=== PATIENT | female | born 1940 | race Caucasian/White ===

== ENCOUNTER 2022-01-13 14:46 | Outpatient (REF) | payer OTHER, SELFPAY ==
--- NOTE | ~2022-01-13 | XR_ITS ---
EXAMINATION: XR HAND WRIST, RIGHT XR HAND WRIST, LEFT CLINICAL INFORMATION: M10.9 - Gout, unspecified COMPARISON: Bilateral feet 01/13/2022. TECHNIQUE: Each 8 and wrist are imaged in 3 large [id number] images. A navicular view of each wrist is also included. There are a total of 8 views, 4 on each side. FINDINGS: Right: There is generalized osteopenia. The ulnar variance is neutral. There is soft tissue swelling adjacent to the ulnar styloid. No carpal joint narrowing or erosive change or chondrocalcinosis. The MCP joints and interphalangeal joints, or unremarkable. The digits demonstrate large punched-out lytic lesion involving the head fifth finger middle phalanx. There is a small periarticular erosion lateral side neck third finger middle phalanx and periarticular soft tissue mineralization medial side index and third finger DIP joints. Left: There is generalized osteopenia. The ulnar variance is neutral. There is mild soft tissue swelling adjacent to the ulnar styloid. No carpal joint narrowing or erosive change or chondrocalcinosis. The MCP joints and interphalangeal joints are unremarkable. There is mild narrowing DIP and PIP joints. No periarticular defects or significant mineralized tophi demonstrated. There is questionable small healed erosion lateral base third finger distal phalanx. XR/XR hand wrist LT IMPRESSION: Right: -Generalized osteopenia. Soft tissue swelling adjacent to ulnar styloid. -Large punched-out lytic erosion head fifth finger middle phalanx. Small erosion 3rd MP. -Periarticular mineralization 2nd and 3rd fingers. Left: -Generalized osteopenia. Soft tissue swelling adjacent to ulnar styloid. -Mild narrowing DIP, PIP joints. -Small periarticular erosion third finger middle phalanx and medial side index and third finger DIP joints.
--- NOTE | ~2022-01-13 | XR_ITS ---
EXAMINATION: XR FOOT, RIGHT XR FOOT, LEFT CLINICAL INFORMATION: M10.9 - Gout, unspecified COMPARISON: None TECHNIQUE: Each foot is imaged in 3 views. There are a total of 6 views. FINDINGS: Right: There is generalized osteopenia. Hindfoot shows bulky posterior and plantar calcaneal spurs with preserved retrocalcaneal recess. There is dorsal spurring from the midfoot. The forefoot shows hallux valgus of around 25 degrees and a medial bunion first MTP. There is a para-articular erosion dorsomedial first metatarsal head. No mineralized tophus. There are erosions medial and lateral base first proximal phalanx. Possibility of an occult pathologic fracture at the medial base proximal phalanx cannot be excluded. The second digit shows destructive process with extensive lysis middle phalanx and base and mid portion distal phalanx. There is no gas seen tracking in the soft tissues. No mineralized tophus. There are para-articular erosions third and fourth toe near the PIP joints. No erosive changes. Left: There is generalized osteopenia. Hindfoot shows bulky posterior and plantar calcaneal spurs. Question para-articular erosion dorsum distal talus. Talonavicular joint appears normal. Remainder midfoot shows no erosive change or calcified soft tissue tophus. There are erosive changes involving the base first distal phalanx and neck and proximal phalanx. Possibility of pathologic fracture neck proximal phalanx cannot be excluded. No mineralized tophus in this area. There are minor soft tissue periarticular mineralization around the 3rd PIP joint. XR/XR foot LT min 3V IMPRESSION: Right: -Large lytic involvement 2nd toe middle and distal phalanges. No gas tracking in soft tissue or tophus. -1st MTP hallux valgus with para-articular erosions 1st MT head and base proximal phalanx. Cannot exclude pathologic fracture medial base proximal phalanx. -Calcaneal spurs. Generalized osteopenia. Left: -Probable erosion dorsum distal talus. -Erosive changes base first distal phalanx and neck proximal phalanx. Possibility of pathologic fracture neck proximal phalanx cannot be excluded. -Calcaneal spurs. Generalized osteopenia.
--- NOTE | ~2022-01-13 | XR_ITS ---
EXAMINATION: XR HAND WRIST, RIGHT XR HAND WRIST, LEFT CLINICAL INFORMATION: M10.9 - Gout, unspecified COMPARISON: Bilateral feet 01/13/2022. TECHNIQUE: Each 8 and wrist are imaged in 3 large [id number] images. A navicular view of each wrist is also included. There are a total of 8 views, 4 on each side. FINDINGS: Right: There is generalized osteopenia. The ulnar variance is neutral. There is soft tissue swelling adjacent to the ulnar styloid. No carpal joint narrowing or erosive change or chondrocalcinosis. The MCP joints and interphalangeal joints, or unremarkable. The digits demonstrate large punched-out lytic lesion involving the head fifth finger middle phalanx. There is a small periarticular erosion lateral side neck third finger middle phalanx and periarticular soft tissue mineralization medial side index and third finger DIP joints. Left: There is generalized osteopenia. The ulnar variance is neutral. There is mild soft tissue swelling adjacent to the ulnar styloid. No carpal joint narrowing or erosive change or chondrocalcinosis. The MCP joints and interphalangeal joints are unremarkable. There is mild narrowing DIP and PIP joints. No periarticular defects or significant mineralized tophi demonstrated. There is questionable small healed erosion lateral base third finger distal phalanx. XR/XR hand wrist RT IMPRESSION: Right: -Generalized osteopenia. Soft tissue swelling adjacent to ulnar styloid. -Large punched-out lytic erosion head fifth finger middle phalanx. Small erosion 3rd MP. -Periarticular mineralization 2nd and 3rd fingers. Left: -Generalized osteopenia. Soft tissue swelling adjacent to ulnar styloid. -Mild narrowing DIP, PIP joints. -Small periarticular erosion third finger middle phalanx and medial side index and third finger DIP joints.
[2022-01-13 15:15] LABS: MANUAL DIFF FLAG NO
[2022-01-13 15:35] LABS: Basophils Percent Auto 0.5 % (0-2); Eosinophils Absolute Auto 0.1 X10*3/uL (0.0-0.4); Eosinophils Percent Auto 1.2 % (0-4); Hematocrit 27.1 % (37.0-47.0); Hemoglobin 7.7 g/dl (12.0-16.0); Imm Gran Abs Auto 0.03 X10*3/uL (0.00-0.03); Imm Gran Pct Auto 0.5 % (0.0-0.4); Lymphocytes Absolute Auto 1.4 X10*3/uL (1.2-4.9); Lymphocytes Percent Auto 24.6 % (20-40); Mean Corpuscular HGB Conc 28.4 g/dl (31.0-35.0); Mean Corpuscular Hemoglobin 21.8 pg (27.0-33.0); Mean Corpuscular Volume 76.8 fL (80.0-98.0); Mean Platelet Volume 9.6 fL (9.4-12.3); Monocytes Absolute Auto 0.5 X10*3/uL (0.1-1.2); Monocytes Percent Auto 8.5 % (2-11); NRBC Pct Auto 0.4 /100WBC (0.0-0.2); Neutrophils Absolute Auto 3.7 x10*3/uL (2.0-8.3); Neutrophils Percent Auto 64.7 % (45-73); Platelet Count 268 X10*3/uL (160-400); Red Blood Count 3.53 X10*6/uL (4.20-5.50); Red Cell Distribution Width 19.1 % (11.0-16.0); White Blood Count 5.7 X10*3/uL (4.8-10.8)
[2022-01-13 16:01] LABS: Alanine Aminotransferase 8 U/L (0-31); Albumin Level 4.2 g/dL (3.5-5.0); Alkaline Phosphatase 65 U/L (39-117); Anion Gap 19 (12-20); Aspartate Amino Transferase 12 U/L (5-31); Bilirubin Total 0.5 mg/dL (0.0-1.0); Blood Urea Nitrogen 26 mg/dL (9-16); Calcium 9.2 mg/dL (8.4-10.2); Carbon Dioxide 23 mmol/L (22-29); Chloride 105 mmol/L (96-108); Estimated Glomerular Filt Rate > 60; Glucose Random 152 mg/dL (60-115); Potassium 4.9 mmol/L (3.3-5.1); Sodium 142 mmol/L (135-145); Total Protein 6.9 g/dL (6.5-8.0); Uric Acid 9.4 mg/dL (2.4-5.7)
[2022-01-13 16:17] LABS: Appearance Urine Cloudy; Color Urine Yellow; Glucose Urine UA Negative (Negative); Leukocyte Esterase Urine Large (3+) (Negative); Nitrite Urine Negative (Negative); Specific Gravity - Urine 1.015 (1.005-1.025); UMIC TRIGGER UA YES; Urine Blood Trace (Negative); Urine Ketones Negative (Negative); Urine Protein 30 (1+) mg/dL (Neg-Trace)
[2022-01-13 16:19] LABS: Bacteria Urine 4+ (None Seen); Hyaline Casts Urine 0-2 /LPF (0-2); Squamous Epithelial Cell Urine 0-2 /HPF (0-2); WBC Urine >50 /HPF (0-5)
[2022-01-13 16:23] LABS: Thyroid Stimulating Hormone 0.96 uIU/mL (0.32-4.0)
[2022-01-13 16:26] LABS: Creatinine Urine 73.03 mg/dL; Protein/Creatinine Ratio, Ur 0.41 (<0.2); Total Protein Urine Random 30 mg/dL (<12)
[2022-01-13 16:26] LABS: Erythrocyte Sedimentation Rate 28 MM/HR (0-20)
[2022-01-16 14:51] LABS: Anti-Centromere B Antibodies <1.0 NEG AI (<1.0 NEG)
[2022-01-16 16:36] LABS: Complement C3 131 mg/dL
[2022-01-18 12:26] LABS: ANA Titer 2 1:40 titer; Anti Nuclear Antibody Screen POSITIVE (NEGATIVE); Anti Nuclear Antibody Titer 1:40 titer
[2022-01-18 15:48] LABS: Anti DNA DS Antibody <1 IU/mL; Antibody to SS-A Antigen <1.0 NEG AI (<1.0 NEG); Antibody to SS-B Antigen <1.0 NEG AI (<1.0 NEG); SM/Ribonucleoprotein Ab <1.0 NEG AI (<1.0 NEG); Scleroderma 70 Antibody <1.0 NEG AI (<1.0 NEG); Smith Protein <1.0 NEG AI (<1.0 NEG)
[2022-01-19 12:01] LABS: HLA B27 Negative (Negative)
== END 2022-01-13 14:47 | disposition home or self-care (01) ==
LOC: HO.XRAY 14:46
PROVIDERS: Visit Provider Student in an Organized Health Care Education/Training Program
DX: I73.00 Raynaud's syndrome without gangrene (principal); M10.9 Gout, unspecified; M79.89 Other specified soft tissue disorders
CPT/HCPCS: 36415; 73110; 73130; 73630; 80053; 81001; 84156; 84443; 84550; 85025; 85652; 86038; 86039; 86160; 86225; 86235; 86812

== ENCOUNTER 2022-03-11 08:19 | Outpatient (REF) | payer OTHER, SELFPAY ==
[2022-03-11 08:31] LABS: MANUAL DIFF FLAG NO
[2022-03-11 08:59] LABS: Basophils Percent Auto 0.7 % (0-2); Eosinophils Absolute Auto 0.1 X10*3/uL (0.0-0.4); Eosinophils Percent Auto 1.3 % (0-4); Hematocrit 30.8 % (37.0-47.0); Hemoglobin 8.9 g/dl (12.0-16.0); Imm Gran Abs Auto 0.01 X10*3/uL (0.00-0.03); Imm Gran Pct Auto 0.2 % (0.0-0.4); Lymphocytes Absolute Auto 1.4 X10*3/uL (1.2-4.9); Lymphocytes Percent Auto 30.2 % (20-40); Mean Corpuscular HGB Conc 28.9 g/dl (31.0-35.0); Mean Corpuscular Hemoglobin 21.8 pg (27.0-33.0); Mean Corpuscular Volume 75.5 fL (80.0-98.0); Mean Platelet Volume 9.7 fL (9.4-12.3); Monocytes Absolute Auto 0.5 X10*3/uL (0.1-1.2); Monocytes Percent Auto 11.4 % (2-11); Neutrophils Absolute Auto 2.6 x10*3/uL (2.0-8.3); Neutrophils Percent Auto 56.2 % (45-73); Platelet Count 255 X10*3/uL (160-400); Red Blood Count 4.08 X10*6/uL (4.20-5.50); Red Cell Distribution Width 19.9 % (11.0-16.0); White Blood Count 4.6 X10*3/uL (4.8-10.8)
[2022-03-11 10:08] LABS: Alanine Aminotransferase 10 U/L (0-31); Albumin Level 4.2 g/dL (3.5-5.0); Alkaline Phosphatase 62 U/L (39-117); Anion Gap 17 (12-20); Aspartate Amino Transferase 14 U/L (5-31); Bilirubin Total 0.5 mg/dL (0.0-1.0); Blood Urea Nitrogen 35 mg/dL (9-16); Calcium 9.5 mg/dL (8.4-10.2); Carbon Dioxide 23 mmol/L (22-29); Chloride 106 mmol/L (96-108); Estimated Glomerular Filt Rate > 60; Glucose Random 180 mg/dL (60-115); Sodium 141 mmol/L (135-145); Total Protein 6.6 g/dL (6.5-8.0); Uric Acid 8.9 mg/dL (2.4-5.7)
== END 2022-03-11 08:20 | disposition home or self-care (01) ==
LOC: HO.LAB 08:19
PROVIDERS: PCP Internal Medicine; Visit Provider Student in an Organized Health Care Education/Training Program
DX: M10.9 Gout, unspecified (principal); G72.9 Myopathy, unspecified
CPT/HCPCS: 36415; 80053; 82550; 84550; 85025